=== PATIENT | female | born 1975 | race American Indian/Alaskan Native ===

== ENCOUNTER 2019-11-11 14:56 | Emergency (ER) | payer BC ==
[2019-11-11 15:02] VITALS: BP 132/72
--- NOTE | 2019-11-11 16:20 | Emergency Department Report ---
ED ENT HPI - General Chief complaint: Sore Throat Stated complaint: POSS STREP THROAT Time Seen by Provider: 11/11/19 15:46 Source: patient Mode of arrival: Ambulatory Limitations: No Limitations - History of Present Illness Initial comments: 44-year-old -[place] female presents to the emergency room for greater than 2-week history of sore throat. Patient reports that her son at home was diagnosed with strep throat. Patient states that her pain is minimum she is able to swallow no shortness of breath chest pain or fevers. Onset/Timin -: week(s) Location: throat Severity: mild Consistency: constant Associated Symptoms: sore throat. denies: fever, cough, gum swelling, toothache, pain with swallowing, tinnitus, hearing loss - Related Data Allergies Allergy/AdvReac Type Severity Reaction Status Date / Time cefdinir [From Omnicef] AdvReac Nausea Verified 11/11/19 14:59 ED Dental HPI - General Chief complaint: Sore Throat Stated complaint: POSS STREP THROAT Time Seen by Provider: 11/11/19 15:46 Source: patient Mode of arrival: Ambulatory Limitations: No Limitations - Related Data Allergies Allergy/AdvReac Type Severity Reaction Status Date / Time cefdinir [From Omnicef] AdvReac Nausea Verified 11/11/19 14:59 ED Review of Systems ROS: Stated complaint: POSS STREP THROAT Other details as noted in HPI Comment: All other systems reviewed and negative ED Past Medical Hx - Past Medical History Previous Medical History?: No - Surgical History Past Surgical History?: Yes Additional Surgical History: C section - Social History Smoking Status: Never Smoker Substance Use Type: None ED Physical Exam - General Limitations: No Limitations General appearance: alert, in no apparent distress - Head Head exam: Present: atraumatic, normocephalic - Eye Eye exam: Present: normal appearance - ENT ENT exam: Present: mucous membranes moist - Expanded ENT Exam Expanded Throat exam: Positive: normal inspection. Negative: tonsillar erythema, tonsillomegaly, tonsillar exudate - Neck Neck exam: Present: normal inspection, full ROM - Back Exam Back exam: Present: normal inspection - Neurological Exam Neurological exam: Present: alert, oriented X3 - Psychiatric Psychiatric exam: Present: normal affect, normal mood ED Course Vital Signs 11/11/19 15:01 Temperature 97.8 F Pulse Rate 89 Respiratory 16 Rate Blood Pressure 132/72 [Right] O2 Sat by Pulse 100 Oximetry ED Medical Decision Making - Medical Decision Making 44-year-old -[place] female presents to the emergency room for greater than 2-week history of sore throat. Patient reports that her son at home was diagnosed with strep throat. Patient states that her pain is minimum she is able to swallow no shortness of breath chest pain or fevers. Rapid strep is negative. Patient can take ibuprofen or Tylenol as needed for pain management increase fluids. Critical care attestation.: If time is entered above; I have spent that time in minutes in the direct care of this critically ill patient, excluding procedure time. ED Disposition Clinical Impression: Sore throat Disposition: DC-01 TO HOME OR SELFCARE Is pt being admited?: No Does the pt Need Aspirin: No Condition: Stable Instructions: Pharyngitis (ED) Additional Instructions: Rapid strep is negative. Patient can take ibuprofen or Tylenol as needed for pain management increase fluids. Referrals: DOMINIC THAPA MD [Staff Physician] - 3-5 Days
== END 2019-11-11 16:20 | disposition home or self-care (01) ==
LOC: ED 14:56
DX: J02.9 Acute pharyngitis, unspecified (principal); Z79.899 Other long term (current) drug therapy; Z98.890 Other specified postprocedural states; Z88.8 Allergy status to other drugs, medicaments and biological substances
CPT/HCPCS: 87116; 87430; 99283